=== PATIENT | female | born 1970 | race Caucasian/White ===

== ENCOUNTER 2016-09-30 16:52 | Emergency (ER) | payer BC ==
[~2016-09-30] VITALS: Ht 170.2 cm; Wt 76.2 kg
[2016-09-30 17:33] LABS: HEMATOCRIT 35.2 % (36.0-46.0); MCH 28.1 PG (29.0-34.0); MCHC 32.7 G/DL (30.0-36.0); MCV 86.1 FL (83-99); PLATELET COUNT 328 K/uL (156-360); RBC DIS.WIDTH-SD 43.8 % (39-53); RED BLOOD COUNT 4.09 M/uL (3.80-5.20); WHITE BLOOD COUNT 8.3 K/uL (4.1-10.2)
[2016-09-30 17:40] LABS: ADD MIUA? YES; BILIRUBIN NEGATIVE; BLOOD SMALL; COLOR YELLOW ((YELLOW)); GLUCOSE (STRIP) NEGATIVE; KETONES 5; LEUKOCYTES NEGATIVE; NITRITE NEGATIVE; PROTEIN (STRIP) NEGATIVE; SPECIFIC GRAVITY 1.004 (1.000-1.030); UROBILINOGEN 0.2 MG/DL (0.2-1.0)
[2016-09-30 17:42] LABS: BACTERIA RARE /HPF; EPITHELIAL CELLS RARE /HPF; MUCUS NONE SEEN /LPF; RED BLOOD CELLS 0-5 /HPF (0-5); WHITE BLOOD CELLS 0-5 /HPF (0-5)
[2016-09-30 17:42] LABS: CHLORIDE 104 mEq/L (99-109); POTASSIUM 3.7 mEq/L (3.7-5.4); SODIUM 138 mEq/L (136-147)
[2016-09-30 17:44] LABS: GLUCOSE 89 mg/dL (70-99)
[2016-09-30 17:45] LABS: ANION GAP 12 MEQ/L (2-14)
[2016-09-30 17:46] LABS: TOTAL BILIRUBIN 0.3 mg/dL (0.0-1.0)
[2016-09-30 17:48] LABS: ALKALINE PHOSPHATASE 40 IU/L (3-129); GFR ESTIMATE (CALCULATED) > 59 mL/min/
[2016-09-30 17:49] LABS: UREA NITROGEN (BUN) 9 mg/dL (9-23)
[2016-09-30 17:51] LABS: LIPASE 19 U/L (1.0-51.0)
[2016-09-30 17:57] LABS: QUANTITATIVE HCG < 4.0 MIU/ML
[2016-09-30 21:22] VITALS: BP 126/81
== END 2016-09-30 21:34 | disposition home or self-care (01) ==
LOC: EME 16:52
PROVIDERS: Nurse Practitioner Family
DX: K92.2 Gastrointestinal hemorrhage, unspecified (principal); Z80.0 Family history of malignant neoplasm of digestive organs; Z88.6 Allergy status to analgesic agent
CPT/HCPCS: 80053; 81003; 83690; 84702; 85027; 99281; 99285; J7030